=== PATIENT | female | born 1960 | race American Indian/Alaskan Native ===

== ENCOUNTER 2017-12-28 08:28 | Day surgery (SDC) | payer MEDICAID ==
[2017-12-28] MEDS ORDERED: NACL 0.9% 1000 ML 1,000 ML IV SCH (09:00)
[2017-12-28] MEDS ORDERED: HURRICAINE ONE 20% TOPICAL SPRAY MM ×2 (09:50→16:14)
[2017-12-28] MEDS ORDERED: DIPRIVAN 10 MG/ML IV ONE ×2 (09:51)
--- NOTE | 2017-12-28 09:56 | Anesthesia Day of Surgery ---
Anesthesia Day of Surgery - Day of Surgery Patient Examined: Yes Patient H&P Reviewed: Yes Patient is NPO: Yes
--- NOTE | 2017-12-28 09:56 | Anesthesia Consultation ---
Anesthesia Consult and Med Hx Date of service: 12/28/17 - Airway Anesthetic Teeth Evaluation: Edentulous ROM Head & Neck: Adequate Mental/Hyoid Distance: Adequate Mallampati Class: Class I Intubation Access Assessment: Good - Pulmonary Exam CTA: Yes - Cardiac Exam Cardiac Exam: RRR - Pre-Operative Health Status ASA Pre-Surgery Classification: ASA3 Proposed Anesthetic Plan: MAC - Pulmonary Hx Smoking: Yes (Quit 2013) Hx Asthma: Yes (used inhaler this morning) COPD: Yes - Cardiovascular System Hx Hypertension: Yes - Gastrointestinal Hx Gastroesophageal Reflux Disease: Yes
--- NOTE | 2017-12-28 10:17 | Operative Report ---
Operative Report Operative Report: OPERATIVE REPORT - EGD DATE 12/28/17 SURGERY: Upper endoscopy. SURGEON: Dr. Catalino Herman CREDIT REVIEW ANALYST: Justo Sandoval DO PRE OP DX: dyspepsia, epigastric pain POST OP DX: gastritis, duodenal polyp and small hiatal hernia TYPE OF ANESTHESIA: MAC. ESTIMATED BLOOD LOSS: None. COMPLICATIONS: None. SPECIMENS REMOVED: duodenal polyp biopsy, antral biopsy FINDINGS: 1. Small hiatal hernia. 2. Otherwise, normal esophagus. 3. Gastritis 4. duodenal polyp INDICATIONS:INDICATION FOR PROCEDURE: Patient is a 57-year-old female with a Hx of GERD. Pt states she had a "hernia" surgery in 2012 and 2016. She doesnt know the kind of hernia repairs. He admits to having reflux and nausea. She has previously taken omeprazole. She doesnt know if the omeprazole helped her symptoms. She is here today for an EGD to evaluate her reflux symptoms. PROCEDURE DETAILS: After consent was reviewed, patient was taken back to the operating room where patient was placed in the left lateral decubitus position and a bite block was placed in the mouth. After a time-out was called, MAC anesthesia was initiated. I then passed the endoscope into her oropharynx, into her esophagus, visualized the entire esophagus, which was all within normal limits. I then visualized the stomach and the first portion of the duodenum. The stomach showed gastritis. The first portion of the duodenum had a duodenal polyp that was biopsied. An antral biopsy of the stomach was also performed. I then retroflexed the scope in the stomach and visualized the hiatus and I could see a small hiatal hernia. I then desufflated the stomach and removed the endoscope. Patient tolerated procedure well and was transferred to recovery room in good and stable condition.
--- NOTE | 2017-12-28 10:19 | Discharge Summary ---
Providers - Providers Attending physician: ESE BAE Primary care physician: ROSA TRAN Hospitalization Procedures: egd Hospital course: 57 y.o. F presented for and EGD to evaluate her dyspepsia symptoms. She tolerated the procedure well and was discharged home the same day. EGD showed gastritis. She has been instructed to use omeprazole 40mg daily. Disposition: DC-01 TO HOME OR SELFCARE Core Measure Documentation - Palliative Care Palliative Care/ Comfort Measures: Not Applicable - Core Measures Any of the following diagnoses?: none Exam - Physical Exam Narrative exam: no change from prior - Constitutional Vitals: Temp Pulse Resp BP Pulse Ox 97.8 F 77 22 140/89 96 12/28/17 09:04 12/28/17 09:04 12/28/17 09:04 12/28/17 09:04 12/28/17 09:04 Plan Additional Instructions: follow up with Dr. Bae Follow up with: ROSA TRAN MD [Primary Care Provider] - 7 Days
[2017-12-28] MEDS ORDERED: WATER FOR IRRIG STERILE IR ONE (10:20)
[2017-12-28 10:49] VITALS: BP 126/69
--- NOTE | 2017-12-28 14:14 | Post Anesthesia Evaluation ---
- Post Anesthesia Evaluation Patient Participated: Yes Airway Patent: Yes Stable Respiratory Function: Yes Nausea/Vomiting: No Temp > 96.8F: Yes Pain Manageable: Yes Adequeate Hydration: Yes Anesthesia Complications: No
== END 2017-12-28 08:29 | disposition home or self-care (01) ==
LOC: GIO 08:28
PROVIDERS: ATTEND Specialist
DX: K29.50 Unspecified chronic gastritis without bleeding (principal); B96.81 Helicobacter pylori [H. pylori] as the cause of diseases classified elsewhere; K31.7 Polyp of stomach and duodenum; K44.9 Diaphragmatic hernia without obstruction or gangrene; K21.9 Gastro-esophageal reflux disease without esophagitis; J44.9 Chronic obstructive pulmonary disease, unspecified; I10 Essential (primary) hypertension; Z98.890 Other specified postprocedural states; Z87.891 Personal history of nicotine dependence
CPT/HCPCS: 43239; 88305; 88342; J2704; J7030